=== PATIENT | female | born 1950 | race Hispanic/Latino ===

== ENCOUNTER 2025-04-20 21:08 | Inpatient (IN) | payer MEDICARE, OTHER ==
[~2025-04-20] VITALS: Ht 175.3 cm; Wt 99.8 kg
[2025-04-20 21:49] LABS: BASOPHILS # (AUTO) 0.03 K/uL (0.00-0.20); BASOPHILS % (AUTO) 0.4 % (0.0-5.0); EOSINOPHILS # (AUTO) 0.15 K/uL (0.00-0.70); HEMATOCRIT 40.6 % (36-48); IMMATURE GRANULOCYTE ABSOLUTE 0.02 K/uL (0-1); LYMPHOCYTES # (AUTO) 2.1 K/uL (1.0-4.8); LYMPHOCYTES % (AUTO) 27.2 % (21.0-51.0); MEAN CORPUSCULAR HEMOGLOBIN 30.9 pg (27.0-33.0); MEAN CORPUSCULAR HGB CONC 32.8 g/dL (32.0-36.0); MEAN CORPUSCULAR VOLUME 94.2 fL (79-99); MONOCYTES # (AUTO) 0.6 K/uL (0.1-1.0); MONOCYTES % (AUTO) 7.8 % (3.0-13.0); NEUTROPHILS # (AUTO) 4.8 K/uL (1.8-7.7); NEUTROPHILS % (AUTO) 62.3 % (40.0-77.0); PLATELET COUNT (AUTO) 235 K/uL (130-400); RED BLOOD CELL COUNT(AUTO) 4.31 MIL/uL (4.00-5.50); RED CELL DISTRIBUTION WIDTH 13.5 % (11.0-15.5); WHITE BLOOD COUNT (AUTO) 7.7 K/uL (4.8-10.8)
[2025-04-20 21:56] LABS: CREATININE 1.6 mg/dL (0.5-1.0); POTASSIUM 4.2 mmol/L (3.5-5.1)
[2025-04-20] MEDS: 0.9%NACL 1000ML 1,000 ML IV ONE (22:20)
[2025-04-20 22:21] LABS: APPEARANCE,URINE CLEAR (CLEAR); BILIRUBIN,URINE NEGATIVE (NEGATIVE); COLOR,URINE LIGHT-YELLOW (YELLOW); GLUCOSE, URINE (UA) 300 mg/dL (NEGATIVE); KETONES,URINE 5 mg/dL (NEGATIVE); LEUKOCYTE ESTERASE ,URINE 75 Leu/uL (NEGATIVE); NITRATE,URINE 2+ (NEGATIVE); PH,URINE 5.5 (5.0-8.0); PROTEIN,URINE NEGATIVE (NEGATIVE); UROBILINOGEN,URINE 0.2 mg/dL (0.2-1.0)
[2025-04-20 22:23] LABS: BACTERIA,URINE FEW /HPF (None Seen); MUCUS,URINE RARE LPF (None Seen); RBC,URINE 0-1 /HPF (0-1); SQUAMOUS EPITHELIAL CELL,UR FEW /HPF (0-2)
[2025-04-20] MEDS: acetaMINOPHEN 500 MG TABLET PO ONE (22:40)
[2025-04-20] MEDS: cefTRIAXone 1G VIAL IVPB ONE (22:40)
[2025-04-20] MEDS ORDERED: SEMA1PEN3 SQ (22:50)
[2025-04-20] MEDS: LAbetaLOL 20MG SYG IV PRN (23:13)
--- NOTE | 2025-04-20 23:18 | ERN ---
General Chief Complaint: Headache Stated Complaint: C/O HEADACHE, "FEELING FAINT" Time Seen by MD: 21:13 Time Seen by Midlevel: 21:13 Source: patient History of Present Illness Initial Comments 74-year-old female who presents to the emergency department due to feeling faint. Patient states she was at a restaurant went home had a episode of diarrhea. Patient then went to a baseball game where she was feeling like she might pass out. Patient thinks she may be dehydrated. States she initiated with a headache upon arrival to the ED. Denies any chest pain, shortness of breath, abdominal pain, vomiting, visual changes or further associated symptoms. PMHx DM Allergies: Coded Allergies: No Known Allergies (Unverified Allergy, Unknown, 04/20/25) Home Meds Reported Medications Semaglutide (Ozempic) 1 Mg/0.75 Ml (4 Mg/3 Ml) Pen.injctr, 1 MG SQ QWEEK for 30 Days, #3 ML 0 Refills 04/20/25 Past Medical History Past Medical History: Diabetes-Type II Past Surgical History: None ROS Dictation Constitutional: Negative for fever,chills, and weight loss Eyes: Negative for injury, pain,redness, and discharge ENT: Negative for injury,pain or swelling Cardiovascular: Negative for chest pain, palpitations, and edema Respiratory: Negative for shortness of breath, cough, and wheezing, Abdomen/GI: Positive for diarrhea Negative for abdominal pain, nausea, vomiting, and constipation Back: Negative for injury and pain : Negative for painful urination, bleeding or discharge MS/Extremity: Negative for injury and deformity Skin: Negative for rash, and discoloration Neuro: Positive for feeling faint/weakness, headache Negative for numbness, tingling, and seizure Psych: Negative for suicide ideation, homicidal ideation, and hallucinations Physical Exam Physical Exam Dictation General: awake, alert, no acute distress Head/Face: Normocephalic, atraumatic Eyes: PERRL, EOMI, normal conjunctiva ENT: oral cavity clear, oral mucosa moist Neck: Supple, normal range of motion Cardiovascular: RRR, normal S1/S2 Respiratory: CTAB, no respiratory distress, no rales or wheezes Abdomen: Soft, non-tender, non-distended, normal bowel sounds, no guarding or rebound. Skin: Warm, dry, normal turgor, no rash MS/Extremity: Pulses equal, no cyanosis, neurovascular intact, FROM Neuro: COAx4, GCS 15, strength 5/5, CN 2-12 intact, normal cerebellar exam, normal gait Psych: Normal behavior, mood, and affect normal NIH STROKE SCALE: NIH STROKE SCALE Response (Comments) Value Level of Consciousness Alert 0 Ask patient month and their age Answers both correct 0 Command to open eyes, make fist and let go Obeys both correct 0 Best gaze (horizontal eye movement) Normal 0 Visual Field Testing No Visual Field Loss 0 Facial Paresis Normal / Symmetrical 0 Motor Function - Left Arm Normal 0 Motor Function - Right Arm Normal 0 Motor Function - Left Leg Normal 0 Motor Function - Right Leg Normal 0 Limb Ataxia No Ataxia 0 Sensory-pin prick to arms, legs, trunk and face Normal 0 Best Language (describe picture, name items and read) No Aphasia 0 Dysarthria (read several words) Normal Articulation 0 Extinction and Inattention Normal 0 Total 0 Results Laboratory and Microbiology Lab and Micro Result Laboratory Tests Test 04/20/25 21:42 04/20/25 22:12 White Blood Count 7.7 K/uL (4.8-10.8) Red Blood Count 4.31 MIL/uL (4.00-5.50) Hemoglobin 13.3 g/dL (12.0-16.0) Hematocrit 40.6 % (36-48) Mean Corpuscular Volume 94.2 fL (79-99) Mean Corpuscular Hemoglobin 30.9 pg (27.0-33.0) Mean Corpuscular Hemoglobin Concent 32.8 g/dL (32.0-36.0) Red Cell Distribution Width 13.5 % (11.0-15.5) Platelet Count 235 K/uL (130-400) Mean Platelet Volume 9.5 fL (7.5-10.5) Immature Granulocyte % (Auto) 0.3 % (0-1) Neutrophils (%) (Auto) 62.3 % (40.0-77.0) Lymphocytes (%) (Auto) 27.2 % (21.0-51.0) Monocytes (%) (Auto) 7.8 % (3.0-13.0) Eosinophils (%) (Auto) 2.0 % (0.0-8.0) Basophils (%) (Auto) 0.4 % (0.0-5.0) Neutrophils # (Auto) 4.8 K/uL (1.8-7.7) Lymphocytes # (Auto) 2.1 K/uL (1.0-4.8) Monocytes # (Auto) 0.6 K/uL (0.1-1.0) Eosinophils # (Auto) 0.15 K/uL (0.00-0.70) Basophils # (Auto) 0.03 K/uL (0.00-0.20) Absolute Immature Granulocyte (auto 0.02 K/uL (0-1) Nucleated Red Blood Cells 0.0 % (0.0-0.19) Sodium Level 139 mmol/L (136-145) Potassium Level 4.2 mmol/L (3.5-5.1) Chloride Level 107 mmol/L (101-111) Carbon Dioxide Level 24 mmol/L (21-32) Blood Urea Nitrogen 21 mg/dL (7-18) H Creatinine 1.6 mg/dL (0.5-1.0) H Glomerular Filtration Rate Calc 34 mL/min (>90) Random Glucose 219 mg/dL (70-105) H Total Calcium 9.1 mg/dL (8.5-10.1) Urine Color LIGHT-YELLOW (YELLOW) Urine Appearance CLEAR (CLEAR) Urine pH 5.5 (5.0-8.0) Urine Specific [place] 1.020 (1.001-1.031) Urine Protein NEGATIVE mg/dL (NEGATIVE) Urine Glucose (UA) 300 mg/dL (NEGATIVE) H Urine Ketones 5 mg/dL (NEGATIVE) H Urine Occult Blood +- (TRACE) (NEGATIVE) H Urine Nitrate 2+ (NEGATIVE) H Urine Bilirubin NEGATIVE mg/dL (NEGATIVE) Urine Urobilinogen 0.2 mg/dL (0.2-1.0) Urine Leukocyte Esterase 75 Susan/uL (NEGATIVE) H Urine RBC 0-1 /HPF (0-1) Urine WBC 11-25 /HPF (0-1) H Urine Squamous Epithelial Cells FEW /HPF (0-2) Urine Bacteria FEW /HPF (None Seen) Urine Hyaline Casts 2-5 /LPF (0-1 /LPF) H Labs Reviewed?: Yes MDM MDM: Differential diagnosis: Dehydration, vertigo, Rationale: 89-year-old female who presents to the emergency department due to chest pain. Per family member patient's pain initiated 30 minutes ago she was also complaining of shortness of breath and nausea. Blood pressure of 227/107 at home half of metoprolol and losartan given. Patient denies any current symptoms. PMHx HTN, dementia Per physical examination patient is in no acute distress, abdomen is soft nontender, no neurological deficits. NIH score of 0. Labs obtained CBC within normal limits. BUN 21 creatinine 1.6 no previous labs for comparison. UA shows 75 leukocyte esterase and 11-25 WBCs. Patient was administered acetaminophen, IV fluids, and Rocephin in the ED. Patient was educated on findings, diagnosis, decision for admission. Patient verbalized understanding and agrees with admission. Case discussed with hospitalist who accepts admission. Previous outside records reviewed: Old ER visits. Risk of complication and/or morbidity or mortality of patient management: None Medications-Per medication reconciliation Need for hospitalization: Patient does meet criteria for hospitalization. Need for emergency major/minor surgery: No There are no social concerns with this patient. Prescription drug management Prescriptions will include symptomatic care Patient's prior external medical records from other ER visits were reviewed by me as indicated. Prior testing and results from previous visits were reviewed. Prior tests were taken into account with medical decision making and resource utilization, independent historian/historians were used to obtain complete medical history. I independently interpreted the test that were performed, results were reviewed by me and considered findings on radiology if ordered. Medical management and examination interpretation discussions were had by me with other qualified healthcare professionals as indicated for the patient's care. ED Course Orders Procedure Category Date Status Time Cbc With Differential LAB 04/20/25 Complete 21:28 Basic Metabolic Panel LAB 04/20/25 Complete 21:28 Urinalysis LAB 04/20/25 Complete W/Microscopic 21:28 Bedside Glucose CPOE 04/20/25 Transmitted Fingerstick 21:28 0.9%Nacl 1000ml (Ns PHA 04/20/25 Complete 1000ml) 22:30 Culture Urine NICHOL 04/20/25 In Process 22:22 Acetaminophen 500mg PHA 04/20/25 Complete Tab (Tylenol 500mg T 22:30 Ceftriaxone 1g Vial PHA 04/20/25 Complete (Rocephine 1g Inj) 22:30 Admit Orders ADM 04/20/25 Transmitted 22:26 Current Medications Medications (Trade) Dose Ordered Sig/Annalise Route PRN Reason Start Time Stop Time Status Last Admin Dose Admin Acetaminophen (TYLenol 500MG TAB) 1,000 mg ONCE ONCE PO 04/20/25 22:30 04/20/25 22:31 DC 04/20/25 22:40 Ceftriaxone Sodium (ROCEphine 1G INJ) 1 gm ONCE ONCE IVPB 04/20/25 22:30 04/20/25 22:31 DC 04/20/25 22:40 Sodium Chloride 1,000 ml @ 0 mls/hr ONCE ONCE IV 04/20/25 22:30 04/20/25 22:31 DC 04/20/25 22:20 Vital Signs Date Time Temp Pulse Resp B/P (MAP) Pulse Ox O2 Delivery O2 Flow Rate FiO2 04/20/25 22:00 84 18 180/80 99 Room Air* 0 21 04/20/25 21:12 97.3 78 20 197/79 97 Room Air DX & DISP Disposition: Inpatient Decision to Admit Date: Apr 20, 2025 Departure Impression: Primary Impression: FLYNN (acute kidney injury) Additional Impression: UTI (urinary tract infection) Condition: Stable Referrals: SELF,REFERRAL (PCP) I performed the substantive portion of the visit. I have reviewed and personally made and approve the management plan that is documented in the notes by myself or the ANIL. I acknowledge full responsibility for the patient's management plan. CONNOR BEE Apr 20, 2025 23:18
--- NOTE | 2025-04-20 23:21 | HP ---
[facility] HISTORY AND PHYSICAL Date of Service: Apr 20, 2025 Time of Service: 23:21 Attending/supervising physicians: Dr. Burk and Dr. Jacobson HISTORY OF PRESENT ILLNESS: Ms. Ding is a 74-year-old female with a history of diabetes mellitus, obesity, and hypercholesteremia who presented to the emergency department due to GBW and feeling faint. Patient stated she was at a restaurant went home had a episode of diarrhea. Patient then went to a baseball game where she was feeling like she might pass out. Patient thinks she may be dehydrated. The patient stated that she initiated with a headache upon arrival to the ED. The patient denied any chest pain, shortness of breath, abdominal pain, vomiting, visual changes or further associated symptoms. WBCs WNL. BUN 21, creatinine 1.6, GFR 34, blood glucose 219, UA positive for leuk EST and nitrites. ED provider requested patient be admitted with the diagnosis of acute kidney injury and urinary tract infection. I went to assess the patient at bedside in [facility]. The patient's breathing was even, unlabored, appeared comfortable, in no distress. The patient stated she is from out of town and has not seen a family doctor for a while. She repor ts that she has seen [place] and is on Ozempic. The son at bedside reported that the patient family has been busy with his wedding and mild attribute to her general body weakness and fatigue. He also reports that his also ate in the same restaurant and also had diarrhea. The son reports that patient does not follow her diabetic diet. He reports that the patient eats a whole can of ice cream. Education done on diabetes mellitus and diabetic diet. Patient reports the prior provider so educated her on this. I informed the patient and son of labs, diagnostics, and plan of care. The patient was surprised with UTI. She denies any urinary frequency or pain with urination. She reports a history of urinary i ncontinence. I answered the sons and patient's multiple questions. They verbalized understanding and are in agreement with the plan. Plan and assessment are listed below. REVIEW OF SYSTEMS 12-point ROS reviewed with patient. All pertinent positives mentioned above. Otherwise negative, noncontributory, non-pertinent. PAST MEDICAL HISTORY: Is mentioned above PAST SURGICAL HISTORY: None PAST SOCIAL HISTORY: Denied alcohol, tobacco, illicit drug use FAMILY HISTORY: Obesity Coded Allergies: No Known Allergies (Unverified Allergy, Unknown, 04/20/25) PHYSICAL EXAM GENERAL APPEARANCE: The patient is awake, alert, and oriented, in no acute cardiopulmonary distress. NEUROLOGICAL: Cranial nerves II-XII grossly intact. Motor is 5/5 in bilateral upper and lower extremities proximal to distal. No sensory deficits. HEENT: Face is symmetric. Pupils are equal and reactive. Extraocular movements are intact. NECK: Supple. No JVD. No thyromegaly. No submental, submandibular, pre- /postauricular, occipital or supraclavicular lymphadenopathy. CHEST: Normal chest expansion. No Telemetry. LUNGS: Absence of any rales, rhonchi or any wheezing. CARDIOVASCULAR: Regular. S1 and S2 normal. No appreciable rubs, murmurs or gallops. ABDOMEN: Obese. Soft, nontender, and nondistended. There is no rebound, voluntary guarding, or rigidity. : Deferred. No Ramsey. EXTREMITIES: Non-edematous and not cyanotic. No clubbing. Good capillary refill. SKIN: No skin breakdown. Vital Sign (Last 24 Hours) 04/20/25 23:15 Temp 97.3 Pulse 76 Resp 18 B/P (MAP) 173/76 Pulse Ox 97 O2 Delivery Room Air* O2 Flow Rate 0 FiO2 21 LABS: Laboratory: Test 04/20/25 22:12 04/20/25 21:42 Range/Units Urine Color LIGHT-YELLOW YELLOW Urine Appearance CLEAR CLEAR Urine pH 5.5 5.0-8.0 Urine Specific [place] 1.020 1.001-1.031 Urine Protein NEGATIVE NEGATIVE mg/dL Urine Glucose (UA) 300 H NEGATIVE mg/dL Urine Ketones 5 H NEGATIVE mg/dL Urine Occult Blood +- (TRACE) H NEGATIVE Urine Nitrate 2+ H NEGATIVE Urine Bilirubin NEGATIVE NEGATIVE mg/dL Urine Urobilinogen 0.2 0.2-1.0 mg/dL Urine Leukocyte Esterase 75 H NEGATIVE Susan/uL Urine RBC 0-1 0-1 /HPF Urine WBC 11-25 H 0-1 /HPF Urine Squamous Epithelial Cells FEW 0-2 /HPF Urine Bacteria FEW None Seen /HPF Urine Hyaline Casts 2-5 H 0-1 /LPF /LPF White Blood Count 7.7 4.8-10.8 K/uL Red Blood Count 4.31 4.00-5.50 MIL/uL Hemoglobin 13.3 12.0-16.0 g/dL Hematocrit 40.6 36-48 % Mean Corpuscular Volume 94.2 79-99 fL Mean Corpuscular Hemoglobin 30.9 27.0-33.0 pg Mean Corpuscular Hemoglobin Concent 32.8 32.0-36.0 g/dL Red Cell Distribution Width 13.5 11.0-15.5 % Platelet Count 235 130-400 K/uL Mean Platelet Volume 9.5 7.5-10.5 fL Immature Granulocyte % (Auto) 0.3 0-1 % Neutrophils (%) (Auto) 62.3 40.0-77.0 % Lymphocytes (%) (Auto) 27.2 21.0-51.0 % Monocytes (%) (Auto) 7.8 3.0-13.0 % Eosinophils (%) (Auto) 2.0 0.0-8.0 % Basophils (%) (Auto) 0.4 0.0-5.0 % Neutrophils # (Auto) 4.8 1.8-7.7 K/uL Lymphocytes # (Auto) 2.1 1.0-4.8 K/uL Monocytes # (Auto) 0.6 0.1-1.0 K/uL Eosinophils # (Auto) 0.15 0.00-0.70 K/uL Basophils # (Auto) 0.03 0.00-0.20 K/uL Absolute Immature Granulocyte (auto 0.02 0-1 K/uL Nucleated Red Blood Cells 0.0 0.0-0.19 % Sodium Level 139 136-145 mmol/L Potassium Level 4.2 3.5-5.1 mmol/L Chloride Level 107 101-111 mmol/L Carbon Dioxide Level 24 21-32 mmol/L Blood Urea Nitrogen 21 H 7-18 mg/dL Creatinine 1.6 H 0.5-1.0 mg/dL Glomerular Filtration Rate Calc 34 >90 mL/min Random Glucose 219 H 70-105 mg/dL Total Calcium 9.1 8.5-10.1 mg/dL Current Medications Medications (Trade) Dose Ordered Sig/Annalise Route PRN Reason Start Time Stop Time Status Last Admin Dose Admin Labetalol HCl (TRANdate 20MG SYG) 10 mg Q2HPRN PRN IV IF SBP GREATER THAN 160 6/2/25 23:30 05/20/25 23:29 04/20/25 23:13 10 MG DIAGNOSTICS / RADIOLOGY: [ ] ASSESSMENT: Acute symptomatic dehydration, POA Acute kidney injury, POA, GFR 34 (no prior GFR to compare) Acute complicated cystitis, POA Acute episode of diarrhea, POA Diabetes mellitus with hyperglycemia, A1c 6.9 GBW and feeling of faint Hypoalbuminemia History of hypercholesteremia Obesity, BMI 32.5 septuagenarian Addendum GFR 68 in a.m. PLAN: -Admit to medical floor with continuous telemetry monitoring. -NS at 100 mL an hour x1 L. (ED administered1 L NS). -Rocephin 2 g IV Q 24 hours. -Follow urine cultures. Antibiotics tailored to cultures. -Orthostatic vital signs. -Echocardiogram in a.m. -Troponin levels and EKG. -2D echo in a.m. with heart clinic to read. -p.r.n. medications for: Pain management, nausea, vomiting, hypertension, fever. -Oxygen supplement as needed to maintain oxygen levels equal to or greater than 92% -Atorvastatin 40 mg PO daily. -Blood pressure checks every 4 hours and as needed. -Reconciled home medications. -Glucometer checks before meals and at bedtime with insulin regular sliding scale. -Hold home medications Ozempic. -AM lab. -Monitor renal and liver function. -Monitor electrolytes and and treat accordingly. -Education on diabetes mellitus and need of diabetic diet compliance. -DVT and GI prophylaxis: Heparin and Pepcid. ADVANCED CARE PLANNING 1. Which of the following were discussed? Hospice Care - No Therapeutic options - Yes Advance Directives - Yes Other discussions - 2. Discussed with who? Patient 3. Voluntary nature of this service was explained to the patient? Yes 4. Amount of time spent - __ over 35 minutes 5. Reviewed by Physician? (if this service was performed by ANIL) Yes ATTESTATION BY PHYSICIAN I have seen and examined the patient. I reviewed the documentation, medical decision making, and treatment plan as noted by the mid-level provider above. I agree with the findings and plan of care. KADI DAVIES [facility] Apr 20, 2025 23:21
[2025-04-21] MEDS ORDERED: TEMAZepam 15 MG CAPSULE PO PRN
[2025-04-21] MEDS ORDERED: doCUSate SODIUM 100 MG CAP PO PRN
[2025-04-21] MEDS ORDERED: acetaMINOPHEN 650 MG SUPPOSITORY RC PRN
[2025-04-21] MEDS ORDERED: ondanSETRON 4MG INJ IVP PRN
[2025-04-21] MEDS ORDERED: LACTULOSE 20 GM/30 ML UDCUP PO PRN
[2025-04-21] MEDS: 0.9%NACL 1000ML 1,000 ML IV ONE (00:08)
[2025-04-21 07:18] LABS: BASOPHILS # (AUTO) 0.02 K/uL (0.00-0.20); BASOPHILS % (AUTO) 0.3 % (0.0-5.0); EOSINOPHILS # (AUTO) 0.11 K/uL (0.00-0.70); EOSINOPHILS % (AUTO) 1.5 % (0.0-8.0); HEMATOCRIT 38.5 % (36-48); IMMATURE GRANULOCYTE ABSOLUTE 0.02 K/uL (0-1); LYMPHOCYTES % (AUTO) 39.8 % (21.0-51.0); MEAN CORPUSCULAR HEMOGLOBIN 32.4 pg (27.0-33.0); MEAN CORPUSCULAR HGB CONC 34.5 g/dL (32.0-36.0); MEAN CORPUSCULAR VOLUME 93.7 fL (79-99); MONOCYTES # (AUTO) 0.7 K/uL (0.1-1.0); NEUTROPHILS # (AUTO) 3.7 K/uL (1.8-7.7); NEUTROPHILS % (AUTO) 49.1 % (40.0-77.0); PLATELET COUNT (AUTO) 247 K/uL (130-400); RED BLOOD CELL COUNT(AUTO) 4.11 MIL/uL (4.00-5.50); RED CELL DISTRIBUTION WIDTH 13.7 % (11.0-15.5); WHITE BLOOD COUNT (AUTO) 7.5 K/uL (4.8-10.8)
[2025-04-21] MEDS: INSULIN humuLIN R 100 UNIT/ML 3ML SQ SCH (07:30)
[2025-04-21 07:45] LABS: ALBUMIN 3.2 g/dL (3.5-5.0); BILIRUBIN,DIRECT 0.1 mg/dL (0.0-0.3); BILIRUBIN,TOTAL 0.2 mg/dL (0.2-1.0); CREATININE 0.9 mg/dL (0.5-1.0); MAGNESIUM 1.8 mg/dL (1.80-2.40); PHOSPHORUS 3.4 mg/dL (2.5-4.9); POTASSIUM 4.1 mmol/L (3.5-5.1); THYROID STIMULATING HORMONE 1.02 uIU/mL (0.36-3.74)
[2025-04-21 07:46] LABS: HEMOGLOBIN A1C 6.9 % (4.0-6.0)
[2025-04-21] MEDS: cefTRIAXone 2GM VIAL IVPB SCH (09:57)
[2025-04-21] MEDS: ENOXAPARIN SODIUM 40 MG/0.4 ML SYRINGE SQ SCH (09:58)
[2025-04-21] MEDS: acetaMINOPHEN 325 MG TAB PO PRN (10:15)
--- NOTE | 2025-04-21 10:26 | NUR ---
HAND OFF REPORT TO ROSEMARIE NURSE, PT AAOX4, STABLE NO DISTRESS VITALS WNL MEDICATED FOR HEADACHE. CELL PHONE AND CHARGE WITH PT TO ROOM 9.
--- NOTE | 2025-04-21 14:50 | NUR ---
DCP: HOME Pt currently lives with a son Enrique Ware [phone]. Pt does not have any insecurities with food, care home, and/or utilities. Pt does not have DME, home health or provider services. Pt is able to complete ADLs independently. PCP is Dr. Allen and uses [facility] for any RX needs. At [place] pt will return home and son will assist with transportation. Addendum: 04/21/25 at 1452 by HUMBERTO MOURA SS Amended: Links added.
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
--- NOTE | 2025-04-21 20:01 | HMCSR ---
APPROVED REPORT EXAM: Two-dimensional and M-mode echocardiogram with Doppler and color Doppler. INDICATION ICD: dizziness 2D Dimensions RVDd4.3 cmLVEF(%)66.0 (>50%)LVED Vol(simp.)88.7 mL IVSd0.8 (0.7-1.1cm)FS(%)37 %LVES Vol(simp.)30.7 mL LVDd5.1 (3.8-5.6cm)LA (2D)3.6 (1.6-4.0cm)LVEF(%, simp.)65 % PWd1.0 (0.7-1.1cm)Ao Root(2D)3.1 (2.0-3.7cm)LA ESV INDEX (BP)37.10 mL/m2 LVDs3.2 (2.5-4.0cm)LVOT diam2.1 (1.8-2.4cm) IVC diam1.8 cm Deformation Strain Apical 4-18.7 % Apical 2-18.6 % Apical 3-20.0 % Global Strain-19.1 % M-Mode Dimensions EPSS0.6 cm LA (MM)3.3 (1.6-4.0cm) Ao Root(MM)3.1 (2.0-3.7cm) Aortic Valve AoV Vmax1.8 m/Kari Peak GR12.9 mmHgLVOT Vmax1.3 m/s AoV VTI0.4 mAo Mean GR7.7 mmHgLVOT VTI0.31 m LUCY (VMAX)2.52 cm2AVA (VTI) 2.6 cm2 Mitral Valve MV E Vmax74.5 cm/sDECEL Yaib640 ms MV A Vmax82.4 cm/sP 1/2 T76 ms E/A ratio0.9MVA (PHT)2.9 cm2 TDI E/E' Mesjhn58.1E/E' Foetgxf93.5 Medial E' Peak V6.14 cm/sLateral E' Peak V6.46 cm/s Pulmonary Valve PV Vmax1.1 m/sPV VTI0.22 mPV Mean GR2.2 mmHg PV Peak GR5.1 mmHg Left Ventricle The left ventricle is normal size. There is normal LV segmental wall motion. Normal GLPS at -19%. The re is normal left ventricular wall thickness. LVEF is 60-65%. The left ventricular diastolic function is normal. Right Ventricle The right ventricle is mildly dilated. The right ventricular systolic function is normal. Atria The left atrium is mildly dilated with an LA ESV index of 37 mL/m. The right atrium size is normal. Aortic Valve The aortic valve is trileaflet and normal in structure. No aortic regurgitation is present. There is no aortic valvular stenosis. Mitral Valve The mitral valve is normal in structure. Mitral regurgitation is mild. There is no mitral valve steno sis. Tricuspid Valve The tricuspid valve is normal in structure. There is no tricuspid valve regurgitation noted. Pulmonic Valve The pulmonary valve is normal in structure. There is no pulmonic valvular regurgitation. Great Vessels The aortic root is normal in size. The IVC is normal in size and collapses >50% with inspiration. Pericardium There is no pericardial effusion. Conclusion The left atrium is mildly dilated with an LA ESV index of 37 mL/m. The right ventricle is mildly dilated. The left ventricle is normal size. There is normal left ventricular wall thickness. There is normal LV segmental wall motion. Normal GLPS at -19%. LVEF is 60-65%. The left ventricular diastolic function is normal. Mitral regurgitation is mild. The aortic valve is trileaflet and normal in structure. There is no pericardial effusion.
[2025-04-21] MEDS: amLODIPine 2.5 MG TAB PO SCH (21:20)
[2025-04-21] MEDS: MAGNESIUM 2GM PREMIX 50ML 50 ML IV PRN (21:21)
[2025-04-22 07:05] LABS: BASOPHILS # (AUTO) 0.03 K/uL (0.00-0.20); BASOPHILS % (AUTO) 0.6 % (0.0-5.0); EOSINOPHILS # (AUTO) 0.15 K/uL (0.00-0.70); EOSINOPHILS % (AUTO) 2.8 % (0.0-8.0); HEMATOCRIT 39.1 % (36-48); IMMATURE GRANULOCYTE ABSOLUTE 0.02 K/uL (0-1); LYMPHOCYTES # (AUTO) 2.2 K/uL (1.0-4.8); LYMPHOCYTES % (AUTO) 41.3 % (21.0-51.0); MEAN CORPUSCULAR HEMOGLOBIN 31.1 pg (27.0-33.0); MEAN CORPUSCULAR HGB CONC 32.7 g/dL (32.0-36.0); MEAN CORPUSCULAR VOLUME 95.1 fL (79-99); MONOCYTES # (AUTO) 0.5 K/uL (0.1-1.0); MONOCYTES % (AUTO) 9.3 % (3.0-13.0); NEUTROPHILS # (AUTO) 2.4 K/uL (1.8-7.7); NEUTROPHILS % (AUTO) 45.6 % (40.0-77.0); PLATELET COUNT (AUTO) 225 K/uL (130-400); RED BLOOD CELL COUNT(AUTO) 4.11 MIL/uL (4.00-5.50); RED CELL DISTRIBUTION WIDTH 13.7 % (11.0-15.5); WHITE BLOOD COUNT (AUTO) 5.3 K/uL (4.8-10.8)
[2025-04-22 07:12] LABS: CREATININE 0.9 mg/dL (0.5-1.0); MAGNESIUM 1.9 mg/dL (1.80-2.40); POTASSIUM 4.2 mmol/L (3.5-5.1)
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
[2025-04-22] MEDS ORDERED: LEVO250T75 PO (11:43)
[2025-04-22] MEDS ORDERED: AMLO2.5T2 PO (11:43)
--- NOTE | 2025-04-22 12:06 | NUR ---
pt durrently has no complaints and shows no visable signs of distress
[2025-04-22 12:12] VITALS: BP 145/49; PULSE 80; RESP 18; TEMP 97.6; O2SAT 96
== END 2025-04-22 12:14 | disposition home or self-care (01) | DRG 683 ==
LOC: EDH 21:08 → EDHIP 22:26
PROVIDERS: ADMIT Internal Medicine; ATTEND Internal Medicine
DX: N17.9 Acute kidney failure, unspecified (principal); N30.00 Acute cystitis without hematuria; I16.0 Hypertensive urgency; E11.65 Type 2 diabetes mellitus with hyperglycemia; E66.9 Obesity, unspecified; E78.00 Pure hypercholesterolemia, unspecified; E86.0 Dehydration; E88.09 Other disorders of plasma-protein metabolism, not elsewhere classified; I10 Essential (primary) hypertension; I34.0 Nonrheumatic mitral (valve) insufficiency; Z68.32 Body mass index [BMI] 32.0-32.9, adult; Z79.899 Other long term (current) drug therapy
CPT/HCPCS: 36415; 80048; 80076; 81001; 82948; 83036; 83735; 84100; 84443; 84484; 85025; 87086; 87186; 93306; 93356; 99285; G0378; J0696; J1650; J7030

== ENCOUNTER → 2025-06-10 | Outpatient (CLI) | payer MEDICARE ==
[~2025-06-10] MED LIST: AMLO2.5T2 PO; LEVO250T75 PO; SEMA1PEN3 SQ
== END | disposition home or self-care (01) ==
LOC: RAH 09:32
PROVIDERS: ATTEND Internal Medicine
DX: Z12.31 Encounter for screening mammogram for malignant neoplasm of breast (principal)
CPT/HCPCS: 77067